=== PATIENT | male | born 1995 | race Hispanic/Latino ===

== ENCOUNTER 2016-12-14 01:50 | Emergency (ER) | payer OTHER ==
[~2016-12-14] VITALS: Ht 188 cm; Wt 99.8 kg
[2016-12-14 01:54] VITALS: BP 168/100
[2016-12-14] MEDS ORDERED: orajel (02:00)
[2016-12-14] MEDS ORDERED: CLEO300C2 PO (02:39)
[2016-12-14] MEDS ORDERED: NORCOTAB PO (02:39)
[2016-12-14] MEDS ORDERED: IBUP80TA PO (02:39)
[2016-12-14] MEDS ORDERED: IBUPROFEN 800 MG TAB PO ONE (02:45)
[2016-12-14] MEDS ORDERED: NORCO 5/325MG TABLET (BULK FOR ED) PO ONE (02:45)
== END 2016-12-14 02:57 | disposition home or self-care (01) ==
LOC: M ED 02:48
DX: S02.5XXA Fracture of tooth (traumatic), initial encounter for closed fracture (principal); W50.0XXA Accidental hit or strike by another person, initial encounter; Y92.89 Other specified places as the place of occurrence of the external cause; Y93.89 Activity, other specified; Y99.9 Unspecified external cause status